=== PATIENT | male | born 1960 | race Caucasian/White ===

== ENCOUNTER → 2023-10-25 06:20 | Day surgery (SDC) | payer BC, SELFPAY ==
[2023-10-25 08:19] LABS: Glucose - Point of Care 202 mg/dl (70-99)
== END ==
LOC: GI 06:20
PROVIDERS: ATTENDING PHYSICIAN Internal Medicine
DX: Z12.11 Encounter for screening for malignant neoplasm of colon (principal); K64.8 Other hemorrhoids; K22.89 Other specified disease of esophagus; K31.89 Other diseases of stomach and duodenum; K21.00 Gastro-esophageal reflux disease with esophagitis, without bleeding; R12 Heartburn
CPT/HCPCS: 43239; G0105; 88305; 82962; 88342

== ENCOUNTER → 2023-11-30 11:37 | Outpatient (REF) | payer BC, SELFPAY | LOC: RAD 11:37 | PROVIDERS: ATTENDING PHYSICIAN Physician Assistant Medical | DX: M25.551 Pain in right hip (principal); M25.522 Pain in left elbow | CPT/HCPCS: 73523 ==